=== PATIENT | female | born 1960 | race Caucasian/White ===

== ENCOUNTER 2025-01-11 08:10 | Outpatient (CLI) | payer OTHER, SELFPAY ==
--- NOTE | 2025-01-11 08:18 | MM_ITS ---
WS: [id number] VIEWS: MLO and CC views both breasts. 3D digital tomosynthesis is also included in this exam. Breast implant displacement MLO and cc views were also obtained. No comparisons available Findings: There are scattered areas of fibroglandular density. No suspicious mass, tumor calcification or architectural distortion. Intact bilateral breast implants. MM/MM scr BI tomosynthesis [id number] Impression: BI-RADS: 2 - Benign. FOLLOW-UP: 1 Year Follow-up This mammogram was also analyzed by the Computer Aided Detection System R2 Imag e Customer Assistance Representative.
== END 2025-01-11 08:11 | disposition home or self-care (01) ==
LOC: RAD 08:13
PROVIDERS: PCP Family Medicine; Visit Provider Family Medicine
DX: Z12.31 Encounter for screening mammogram for malignant neoplasm of breast (principal); R92.323 Mammographic fibroglandular density, bilateral breasts; Z98.82 Breast implant status
CPT/HCPCS: 77063; 77067

== ENCOUNTER 2025-01-17 14:21 | Outpatient (CLI) | payer OTHER, SELFPAY ==
--- NOTE | 2025-01-17 14:27 | XR_ITS ---
WS: [id number] SCREENING DEXA SCAN [employer] [facility] CLINICAL INFORMATION: AGE RELATED OSTEOPOROSIS W/O FX COMPARISON: None. FINDINGS: The L1-L4 bone mineral density measures 1.091 g/cm2. This corresponds to a T score score of -0.7 and Z score of 0.6. Left femoral neck bone mineral density measures 0.745 (g/cm2). This corresponds to a T score of -2.1 (no units) and Z score of -1.1 (no units). XR/XR DEXA axial skeleton* [id number] IMPRESSION: Normal bone mineralization lumbar spine. Osteopenia LEFT femoral neck. Patient's FRAX calculated 10 year probability for major osteoporotic fracture i s 7.7% and osteoporotic hip fracture is 0.9%.
== END 2025-01-17 14:22 | disposition home or self-care (01) ==
LOC: RAD 14:22
PROVIDERS: PCP Family Medicine; Visit Provider Family Medicine
DX: M81.0 Age-related osteoporosis without current pathological fracture (principal)
CPT/HCPCS: 77080